=== PATIENT | female | born 1980 | race Caucasian/White ===

== ENCOUNTER 2016-10-16 09:18 | Emergency (ER) | payer SELFPAY ==
[~2016-10-16] VITALS: Ht 154.9 cm; Wt 88.5 kg
[2016-10-16 09:35] VITALS: BP 156/98
== END 2016-10-16 14:20 | disposition left against medical advice (07) ==
LOC: MED 09:18
DX: M79.601 Pain in right arm (principal); Z53.21 Procedure and treatment not carried out due to patient leaving prior to being seen by health care provider